=== PATIENT | female | born 1980 | race Caucasian/White ===

== ENCOUNTER 2016-12-23 16:38 | Emergency (ER) | payer MEDICAID ==
[~2016-12-23] VITALS: Ht 162.6 cm; Wt 83.9 kg
[~2016-12-23 16:38] MED LIST: IBUP-2213 PO
[2016-12-23 16:44] VITALS: BP 108/66
--- NOTE | 2016-12-23 16:47 | NUR ---
Patient ambulated to bed 04.
--- NOTE | 2016-12-23 16:52 | NUR ---
36F BIB SELF C/O SHORTNESS OF BREATH X 2 WEEKS; BL LUNG SOUNDS CLEAR, RR EVEN/UNLABORED, BL EQUAL RISE AND FALL OF CHEST AT THIS TIME; PT STATS HAS DRY COUGH AND IS "COUGHING UP BLOOD" X 2 WEEKS; PT C/O MID-"CHEST DISCOMFORT WITH BREATHING", RADIATES TO LEFT ARM, 6/10 AT THIS TIME; PT AA&OX4, PERRLA, SKIN IS WARM/DRY/INTACT AT THIS TIME; PT STATES NO N/V/D AT THIS TIME; PT PLACED ON MONITOR, RESTING IN BED WITH HOB ELEVATED AND IN LOWEST POSITION; POSITIONED FOR COMFORT; ER MD MADE AWARE OF STATUS. WILL CONTINUE TO MONITOR.
--- NOTE | 2016-12-23 16:55 | NUR ---
Dr. Singer evaluating patient at bedside.
--- NOTE | 2016-12-23 17:26 | NUR ---
XRAY at bedside.
[2016-12-23] MEDS ORDERED: KETOROLAC 60 MG/2 ML VIAL IM ONE (17:50)
[2016-12-23] MEDS ORDERED: methylPREDNISolone SS 125 MG in WATER STERILE 2 ML IM ONE (18:10)
[2016-12-23 18:42] VITALS: BP 103/69
--- NOTE | 2016-12-23 18:42 | NUR ---
Patient discharged with v/s stable. Written and verbal after care instructions given and explained. Patient alert, oriented and verbalized understanding of instructions. Ambulatory with steady gait. All questions addressed prior to discharge. ID band removed. Patient advised to follow up with PMD. Rx of NORCO 5MG-325MG TAB & PREDNISONE 50MG TAB given. Patient educated on indication of medication including possible reaction and side effects. Opportunity to ask questions provided and answered.
== END 2016-12-23 18:42 | disposition home or self-care (01) ==
LOC: MED 16:38
DX: J67.9 Hypersensitivity pneumonitis due to unspecified organic dust (principal); J61 Pneumoconiosis due to asbestos and other mineral fibers
CPT/HCPCS: 71010; 81002; 81025; 96372; 99284; J1885; J2930; Q0092

== ENCOUNTER 2017-02-18 11:06 | Emergency (ER) | payer MEDICAID ==
[~2017-02-18] VITALS: Ht 162.6 cm; Wt 86.2 kg
[2017-02-18 11:32] VITALS: BP 115/75
--- NOTE | 2017-02-18 11:39 | NUR ---
PATIENT TO BED 6 AT THIS TIME.
--- NOTE | 2017-02-18 11:47 | NUR ---
36 YO FEMALE C/O BLOOD IN SPUTUM X6 MONTHS, PAIN UPON BREATHING 01/29 X2WKS, PT WAS DIAGNOSED WITH PNEUMONITIS AND HAS AN APPOINTMENT WITH A TOOL CHECKER ON 02/27/17. A&OX4, VSS, GURNEY TO LOWEST LEVEL, BED RAILUP, RESTING ON GURNEY.
[2017-02-18] MEDS ORDERED: KETOROLAC 30 MG/ML VIAL IM ONE (11:55)
[2017-02-18 12:39] LABS: BASOPHILS # (AUTO) 0.3 K/uL (0.00-0.22); BASOPHILS % (AUTO) 4.3 % (0.0-2.0); EOSINOPHILS # (AUTO) 0.1 K/uL (0-0.4); EOSINOPHILS % (AUTO) 0.8 % (0.0-4.0); HEMATOCRIT 36.4 % (36-48); HEMOGLOBIN 11.7 g/dL (12.0-16.0); LYMPHOCYTES # (AUTO) 2.2 K/uL (2.5-16.5); LYMPHOCYTES % (AUTO) 30.2 % (20.5-51.1); MEAN CORPUSCULAR HEMOGLOBIN 28 pg (27-31); MEAN CORPUSCULAR HGB CONC 32 g/dL (33-37); MEAN CORPUSCULAR VOLUME 86 fL (80-94); MONOCYTES # (AUTO) 0.4 K/uL (0.8-1.0); MONOCYTES % (AUTO) 5.4 % (1.7-9.3); NEUTROPHILS # (AUTO) 4.4 K/uL (1.8-7.7); NEUTROPHILS % (AUTO) 59.3 % (42.2-75.2); PLATELET COUNT (AUTO) 350 K/uL (140-450); RED BLOOD CELL COUNT(AUTO) 4.22 MIL/uL (4.20-5.40); RED CELL DISTRIBUTION WIDTH 13.5 % (11.6-13.7); WHITE BLOOD COUNT (AUTO) 7.4 K/uL (4.8-10.8)
[2017-02-18 12:52] LABS: ANION GAP 12.9 (8-16); CREATININE 0.7 mg/dL (0.6-1.3); POTASSIUM 3.9 mmol/L (3.5-5.1)
[2017-02-18 13:26] VITALS: BP 98/63
--- NOTE | 2017-02-18 13:27 | NUR ---
Patient discharged with v/s stable. Written and verbal after care instructions given and explained. Patient alert, oriented and verbalized understanding of instructions. Ambulatory with steady gait. All questions addressed prior to discharge. ID band removed. Patient advised to follow up with PMD. Rx of NORCO, NAPROXEN given. Patient educated on indication of medication including possible reaction and side effects. Opportunity to ask questions provided and answered.
== END 2017-02-18 13:27 | disposition home or self-care (01) ==
LOC: MED 11:06
DX: R07.89 Other chest pain (principal); Z79.899 Other long term (current) drug therapy
CPT/HCPCS: 36415; 71020; 80048; 84484; 85025; 85379; 96372; 99285; J1885

== ENCOUNTER 2017-04-12 13:25 | Emergency (ER) | payer MEDICAID ==
[~2017-04-12] VITALS: Ht 157.5 cm; Wt 91.2 kg
[2017-04-12 13:31] VITALS: BP 101/71
--- NOTE | 2017-04-12 13:40 | NUR ---
PT AMBULATED TO BED 7.
--- NOTE | 2017-04-12 13:45 | NUR ---
36F BIB FAMILY C/O SHORTNESS OF BREATH WITH, DRY, HACKING COUGH AND HEMOPTYSIS X 1 YEAR; PT C/O ANTERIOR CHEST WALL PAIN, SHARP, RADIATES TO THE BACK, 8/10 WITH BREATHING AND COUGHING X 1 YEAR WELL; PT STATES BEING FOLLOWED BY DISASTER RECOVERY COORDINATOR AND THINKS SHE MAY HAVE LUPUS; BL LUNG SOUNDS CLEAR, RR EVEN/UNLABORED, BL EQUAL RISE/FALL OF CHEST NOTED AT THIS TIME; PT C/O NAUSEA X 2 DAYS, BUT STATES NO VOMITING OR DIARRHEA AT THIS TIME; PT AA&OX4, PERRLA, SKIN IS WARM/DRY/INTACT AT THIS TIME; STEADY GAIT; PT RESTING IN BED WITH HOB ELEVATED AND IN LOWEST POSITION; POSITIONED FOR COMFORT; ER MD MADE AWARE OF STATUS. WILL CONTINUE TO MONITOR.
--- NOTE | 2017-04-12 13:49 | NUR ---
ER MD DR. RODGERS EVALUATING PT AT BEDSIDE.
--- NOTE | 2017-04-12 13:54 | NUR ---
Note undone in EDM - 04/12/17 at 1405 by MEDSS 36F BIB FAMILY C/O SHORTNESS OF BREATH WITH, DRY, HACKING COUGH AND HEMOPTYSIS X 1 YEAR; PT C/O ANTERIOR CHEST WALL PAIN, SHARP, RADIATES TO THE BACK, 8/10 WITH BREATHING AND COUGHING X 1 YEAR WELL; PT STATES BEING FOLLOWED BY PARTS COORDINATOR AND THINKS SHE MAY HAVE LUPUS; BL LUNG SOUNDS CLEAR, RR EVEN/UNLABORED, BL EQUAL RISE/FALL OF CHEST NOTED AT THIS TIME; PT C/O NAUSEA X 2 DAYS, BUT STATES NO VOMITING OR DIARRHEA AT THIS TIME; PT AA&OX4, PERRLA, SKIN IS WARM/DRY/INTACT AT THIS TIME; STEADY GAIT; PT RESTING IN BED WITH HOB ELEVATED AND IN LOWEST POSITION; POSITIONED FOR COMFORT; ER MD MADE AWARE OF STATUS. WILL CONTINUE TO MONITOR.
[2017-04-12] MEDS ORDERED: oxyCODONE/APAP 5/325 MG 1 TAB TAB PO ONE (13:55)
--- NOTE | 2017-04-12 15:13 | NUR ---
PT RETURNED FROM XRAY VIA W/C ACCOMPANIED BY Stupeflix.
[2017-04-12 15:54] VITALS: BP 111/70
--- NOTE | 2017-04-12 15:54 | NUR ---
Patient discharged with v/s stable. Written and verbal after care instructions given and explained. Patient alert, oriented and verbalized understanding of instructions. Ambulatory with steady gait. All questions addressed prior to discharge. ID band removed. Patient advised to follow up with PMD. Rx of NORCO 5MG-325MG TAB given. Patient educated on indication of medication including possible reaction and side effects. Opportunity to ask questions provided and answered.
== END 2017-04-12 15:54 | disposition home or self-care (01) ==
LOC: MED 13:25
DX: R09.1 Pleurisy (principal); R04.2 Hemoptysis; Z79.899 Other long term (current) drug therapy
CPT/HCPCS: 71020; 81002; 81025; 99284

== ENCOUNTER 2017-06-19 13:36 | Emergency (ER) | payer MEDICAID ==
[~2017-06-19] VITALS: Ht 162.6 cm; Wt 92.1 kg
[2017-06-19 13:55] VITALS: BP 113/75
--- NOTE | 2017-06-19 14:10 | NUR ---
PT AA&OX4, STEADY GAIT AT THIS TIME; VSS; PT TO LOBBY AWAITING OPEN BED.
[2017-06-19 14:29] LABS: BASOPHILS # (AUTO) 0.1 K/uL (0.00-0.22); BASOPHILS % (AUTO) 1.5 % (0.0-2.0); EOSINOPHILS # (AUTO) 0.1 K/uL (0-0.4); HEMATOCRIT 37.5 % (36-48); HEMOGLOBIN 12.7 g/dL (12.0-16.0); LYMPHOCYTES # (AUTO) 2.2 K/uL (2.5-16.5); LYMPHOCYTES % (AUTO) 25.6 % (20.5-51.1); MEAN CORPUSCULAR HEMOGLOBIN 29 pg (27-31); MEAN CORPUSCULAR HGB CONC 34 g/dL (33-37); MEAN CORPUSCULAR VOLUME 85 fL (80-94); MONOCYTES # (AUTO) 0.4 K/uL (0.8-1.0); NEUTROPHILS % (AUTO) 67.9 % (42.2-75.2); PLATELET COUNT (AUTO) 351 K/uL (140-450); RED BLOOD CELL COUNT(AUTO) 4.42 MIL/uL (4.20-5.40); RED CELL DISTRIBUTION WIDTH 12.8 % (11.6-13.7); WHITE BLOOD COUNT (AUTO) 8.8 K/uL (4.8-10.8)
[2017-06-19 14:51] LABS: PROTHROMBIN TIME 9.9 secs (10.8-13.4)
[2017-06-19 14:55] LABS: ALBUMIN 3.6 g/dL (3.4-5.0); ANION GAP 10.1 (8-16); CARBON DIOXIDE 27.8 mmol/L (21-32); CREATININE 0.9 mg/dL (0.6-1.3); POTASSIUM 3.9 mmol/L (3.5-5.1); TOTAL BILIRUBIN 0.4 mg/dL (0.0-1.0)
--- NOTE | 2017-06-19 16:16 | NUR ---
PATIENT AMB. TO BRD#3
[2017-06-19] MEDS ORDERED: DEXAMETHASONE 10 MG/ML VIAL IM ONE (16:30)
[2017-06-19] MEDS ORDERED: KETOROLAC 60 MG/2 ML VIAL IM ONE (16:35)
--- NOTE | 2017-06-19 16:35 | NUR ---
PATIENT CAME IN WITH SOB, CHEST PAIN, AND NAUSEA X3 DAYS. PATIENT STATES COUGHING UP BLOOD THROUGHOUT THE DAY. C/O FEVERS AT NIGHT. DENIES CONTACT WITH ANYONE WITH TUBERCULOSIS. HX OF LUPUS. A&OX4. CONTINUE TO MONITOR.
[2017-06-19 17:11] VITALS: BP 121/71
--- NOTE | 2017-06-19 17:13 | NUR ---
Patient discharged with v/s stable. SHE STATES CHEST PAIN AND NAUSEA REIEVED. Written and verbal after care instructions given and explained. Patient alert, oriented and verbalized understanding of instructions. Ambulatory with steady gait. All questions addressed prior to discharge. ID band removed. Patient advised to follow up with PMD. Rx of MOTRIN given. Patient educated on indication of medication including possible reaction and side effects. Opportunity to ask questions provided and answered.
== END 2017-06-19 17:13 | disposition home or self-care (01) ==
LOC: MED 13:36
DX: R07.89 Other chest pain (principal); M32.9 Systemic lupus erythematosus, unspecified; Z86.73 Personal history of transient ischemic attack (TIA), and cerebral infarction without residual deficits; Z79.899 Other long term (current) drug therapy
CPT/HCPCS: 36415; 71010; 80053; 84484; 85025; 85610; 85730; 93005; 96372; 99285; J1100; J1885

== ENCOUNTER 2018-05-08 20:58 | Emergency (ER) | payer MEDICAID ==
[~2018-05-08] VITALS: Ht 162.6 cm; Wt 75.3 kg
[2018-05-08 21:01] VITALS: BP 122/68
[2018-05-08] MEDS ORDERED: NACL 0.9% 1,000 ML IV ONE (21:25)
[2018-05-08] MEDS ORDERED: KETOROLAC 30 MG/ML VIAL IVP ONE (21:25)
[2018-05-08 22:30] VITALS: BP 118/64
== END 2018-05-08 22:30 | disposition home or self-care (01) ==
LOC: MED 20:58
DX: J11.1 Influenza due to unidentified influenza virus with other respiratory manifestations (principal); Z79.1 Long term (current) use of non-steroidal anti-inflammatories (NSAID); Z86.73 Personal history of transient ischemic attack (TIA), and cerebral infarction without residual deficits
CPT/HCPCS: 96374; 99284; J1885; J7030

== ENCOUNTER 2018-12-14 09:29 | Emergency (ER) | payer MEDICAID ==
[~2018-12-14] VITALS: Ht 162.6 cm; Wt 77.1 kg
[2018-12-14 09:35] VITALS: BP 95/67
[2018-12-14] MEDS ORDERED: NACL 0.9% 1,000 ML IV ONE (09:55)
[2018-12-14] MEDS ORDERED: NACL 0.9% 1,000 ML IV SCH (09:55)
[2018-12-14] MEDS ORDERED: FAMOTIDINE 20 MG/2 ML VIAL IVP ONE (09:55)
[2018-12-14] MEDS ORDERED: KETOROLAC 30 MG/ML VIAL IVP ONE (09:55)
--- NOTE | 2018-12-14 09:56 | NUR ---
PATIENT PRESENTS TO ED WITH C/O DIFFICULTY BREATHING SINCE THIS MORNING. PT C/O SHARP EPIGASTRIC PAIN THAT GETS WORSE WHEN COUGHING-- RADIATING TO RT UPPER BACK. O2 SAT 100% ON RA. PATIENT STATES PAIN OF 8/10 AT THIS TIME; VSS; PATIENT POSITIONED FOR COMFORT; HOB ELEVATED; BEDRAILS UP X1; BED DOWN.
--- NOTE | 2018-12-14 10:09 | NUR ---
XRAY AT BEDSIDE, U/S AT BEDSIDE, IV 18GA LT A/C DONE. IVP MEDS GIVEN-NADR AT THIS TIME
[2018-12-14 10:42] LABS: BILIRUBIN,URINE 1+ (NEGATIVE); BLOOD, URINE NEGATIVE (NEGATIVE); COLOR,URINE YELLOW (YELLOW); LEUKOCYTE ESTERASE ,URINE NEGATIVE (NEGATIVE); NITRITE, URINE NEGATIVE (NEGATIVE); PH,URINE 5.5 (5.0-9.0); UGLUCOSE NEGATIVE (NEGATIVE)
[2018-12-14 10:44] LABS: BASOPHILS % (AUTO) 0.7 % (0.0-2.0); EOSINOPHILS % (AUTO) 0.7 % (0.0-4.0); HEMATOCRIT 35.2 % (36-48); HEMOGLOBIN 11.6 g/dL (12.0-16.0); LYMPHOCYTES # (AUTO) 1.7 K/uL (2.5-16.5); LYMPHOCYTES % (AUTO) 31.5 % (20.5-51.1); MEAN CORPUSCULAR HEMOGLOBIN 29 pg (27-31); MEAN CORPUSCULAR HGB CONC 33 g/dL (33-37); MONOCYTES # (AUTO) 0.4 K/uL (0.8-1.0); MONOCYTES % (AUTO) 7.3 % (1.7-9.3); NEUTROPHILS # (AUTO) 3.2 K/uL (1.8-7.7); NEUTROPHILS % (AUTO) 59.8 % (42.2-75.2); PLATELET COUNT (AUTO) 351 K/uL (140-450); RED CELL DISTRIBUTION WIDTH 13.5 % (11.6-13.7); WHITE BLOOD COUNT (AUTO) 5.3 K/uL (4.8-10.8)
[2018-12-14 10:47] LABS: BARBITURATE, URINE NEGATIVE ng/ml (NEG <=200); BENZODIAZEPINE, URINE NEGATIVE ng/mL (NEG <=200)
[2018-12-14 10:48] LABS: CANNABINOID, URINE NEGATIVE ng/mL (NEG <=50); COCAINE, URINE NEGATIVE ng/mL (NEG <=300); OPIATE, URINE NEGATIVE ng/mL (NEG <=2000); PHENCYCLIDINE SCREEN,URINE NEGATIVE ng/mL (NEG <=25)
[2018-12-14 10:55] LABS: ANION GAP 11.1 (8-16); CARBON DIOXIDE 25.7 mmol/L (21-32); CREATININE 0.8 mg/dL (0.6-1.3); POTASSIUM 3.8 mmol/L (3.5-5.1)
[2018-12-14 10:56] LABS: AMYLASE 43 U/L (25-115); LIPASE 103 U/L (73-393)
--- NOTE | 2018-12-14 11:06 | NUR ---
Patient appears to be resting comfortably in bed. Respirations even and unlabored. pt states pain is 7/10 after pain administration. Otherwise, vital signs within normal limits. at bedside. Addendum: 12/14/18 at 1108 by MEDLE Patient appears to be resting comfortably in bed. Respirations even and unlabored. pt states pain is 7/10 after pain medication administration. Otherwise, vital signs within normal limits. at bedside
[2018-12-14 11:10] LABS: ALBUMIN 3.4 g/dL (3.4-5.0); TOTAL BILIRUBIN 0.6 mg/dL (0.0-1.0)
[2018-12-14 11:12] LABS: APPEARANCE,URINE SLIGHTLY HAZY (CLEAR)
[2018-12-14 11:13] LABS: RBC,URINE 0-5 /HPF (0-5); WBC,URINE 0-5 /HPF (0-5)
[2018-12-14] MEDS ORDERED: LORazepam 2 MG/ML VIAL IM ONE (11:30)
[2018-12-14 13:36] VITALS: BP 112/65
--- NOTE | 2018-12-14 13:37 | NUR ---
Patient discharged with v/s stable. Written and verbal after care instructions given and explained. Patient alert, oriented and verbalized understanding of instructions. Ambulatory with steady gait. All questions addressed prior to discharge. ID band removed. Patient advised to follow up with PMD. Rx of VISTARIL given. Patient educated on indication of medication including possible reaction and side effects. Opportunity to ask questions provided and answered.
== END 2018-12-14 13:37 | disposition home or self-care (01) ==
LOC: MED 09:29
DX: F41.0 Panic disorder [episodic paroxysmal anxiety] (principal); R06.4 Hyperventilation; Z79.1 Long term (current) use of non-steroidal anti-inflammatories (NSAID)
CPT/HCPCS: 36415; 71045; 76705; 80053; 80305; 81001; 81025; 82150; 83690; 83880; 84484; 85025; 85379; 93005; 96372; 96374; 96375; 99284; J1885; J2060; J3490; J7030; Q0092

== ENCOUNTER 2019-01-31 09:28 | Emergency (ER) | payer MEDICAID ==
[~2019-01-31] VITALS: Ht 160 cm; Wt 81.6 kg
[2019-01-31 09:32] VITALS: BP 98/64
--- NOTE | 2019-01-31 09:37 | NUR ---
Patient ambulated to bed 8 with family. RN evaluating patient at bedside.
--- NOTE | 2019-01-31 09:38 | NUR ---
pt amb to restroom with steady gait
--- NOTE | 2019-01-31 09:45 | NUR ---
Dr. Cabrera evaluating patient at bedside.
--- NOTE | 2019-01-31 09:46 | NUR ---
38 Y FEMALE C/O GENERALIZED ABD PAIN AND SPITTING UP BLOOD X3 WEEKS. PT REPORTS DARK BROWN TO BRIGHT RED BLOOD. CONSTANT SHARP EPIGASTRIC PAIN THAT RADIATES TO LT SIDE OF BACK. +NAUSEA, DIARRHEA. DENIES BLOOD IN STOOL. BOWEL SOUNDS ACTIVE IN ALL 4 QUADRANTS. ABDOMEN SOFT AND ROUND, TENDER TO TOUCH. VSS. AA0X4. BED IS DOWN, LOCKED, BED RAIL X 1, ERMD TO SEE PT. MEDHX:DENIES RX:DENIES
[2019-01-31] MEDS ORDERED: ALUMINUM HYD/MAG/SIMETHICONE 30 ML UDC PO ONE (09:50)
[2019-01-31] MEDS ORDERED: PANTOPRAZOLE 40 MG INJ VIAL IVP ONE (09:50)
[2019-01-31] MEDS ORDERED: ONDANSETRON 4 MG/2 ML VIAL IVP ONE ×2 (09:50→10:35)
--- NOTE | 2019-01-31 09:50 | NUR ---
labs drawn and handed directly to engineer [facility]
--- NOTE | 2019-01-31 09:53 | NUR ---
US tech at bedside for exam.
[2019-01-31 10:11] LABS: BASOPHILS % (AUTO) 0.3 % (0.0-2.0); EOSINOPHILS % (AUTO) 0.6 % (0.0-4.0); HEMATOCRIT 35.2 % (36-48); HEMOGLOBIN 11.7 g/dL (12.0-16.0); LYMPHOCYTES # (AUTO) 1.7 K/uL (2.5-16.5); LYMPHOCYTES % (AUTO) 28.6 % (20.5-51.1); MEAN CORPUSCULAR HEMOGLOBIN 29 pg (27-31); MEAN CORPUSCULAR HGB CONC 33 g/dL (33-37); MEAN CORPUSCULAR VOLUME 87.9 fL (80-94); MONOCYTES # (AUTO) 0.4 K/uL (0.8-1.0); MONOCYTES % (AUTO) 5.9 % (1.7-9.3); NEUTROPHILS # (AUTO) 3.9 K/uL (1.8-7.7); NEUTROPHILS % (AUTO) 64.6 % (42.2-75.2); PLATELET COUNT (AUTO) 373 K/uL (140-450); RED CELL DISTRIBUTION WIDTH 14.1 % (11.6-13.7); WHITE BLOOD COUNT (AUTO) 6.1 K/uL (4.8-10.8)
[2019-01-31 10:12] LABS: APPEARANCE,URINE HAZY (CLEAR); BILIRUBIN,URINE NEGATIVE (NEGATIVE); BLOOD, URINE NEGATIVE (NEGATIVE); COLOR,URINE YELLOW (YELLOW); LEUKOCYTE ESTERASE ,URINE 1+ (NEGATIVE); NITRITE, URINE NEGATIVE (NEGATIVE); PH,URINE 5.5 (5.0-9.0); UGLUCOSE NEGATIVE (NEGATIVE)
[2019-01-31 10:22] LABS: ANION GAP 14.4 (8-16); CARBON DIOXIDE 25.3 mmol/L (21-32); CREATININE 0.7 mg/dL (0.6-1.3); POTASSIUM 3.7 mmol/L (3.5-5.1)
[2019-01-31 10:27] LABS: ALBUMIN 3.6 g/dL (3.4-5.0); TOTAL BILIRUBIN 0.3 mg/dL (0.0-1.0)
[2019-01-31 10:31] LABS: RBC,URINE 0-5 /HPF (0-5)
[2019-01-31] MEDS ORDERED: MORPHINE SULFATE 4 MG/ML SYR IVP ONE (10:35)
--- NOTE | 2019-01-31 10:48 | NUR ---
pt placed on monitor
--- NOTE | 2019-01-31 10:48 | NUR ---
pt c/o 01/29 pain, morhine ivp administered per dr rowell
--- NOTE | 2019-01-31 11:16 | NUR ---
Dr. Cabrera re-evaluating patient at bedside.
[2019-01-31 11:40] VITALS: BP 102/68
--- NOTE | 2019-01-31 11:40 | NUR ---
Patient discharged with v/s stable. Written and verbal after care instructions given and explained. Patient alert, oriented and verbalized understanding of instructions. Ambulatory with steady gait. All questions addressed prior to discharge. ID band removed. Patient advised to follow up with PMD. Rx of zofran, ultram, protonix given. Patient educated on indication of medication including possible reaction and side effects. Opportunity to ask questions provided and answered.
== END 2019-01-31 11:40 | disposition home or self-care (01) ==
LOC: MED 09:28
DX: R10.13 Epigastric pain (principal); K92.0 Hematemesis; Z79.899 Other long term (current) drug therapy
CPT/HCPCS: 36415; 76705; 80053; 81001; 81025; 83690; 84703; 85025; 86886; 86900; 86901; 87086; 96374; 96375; 96376; 99284; C9113; J2270; J2405; Q0092; 81002

== ENCOUNTER 2019-03-04 18:02 | Emergency (ER) | payer MEDICAID ==
[~2019-03-04] VITALS: Ht 160 cm; Wt 80.8 kg
[2019-03-04 18:07] VITALS: BP 112/68
[2019-03-04] MEDS ORDERED: ONDANSETRON 4 MG/2 ML VIAL IVP ONE (18:15)
[2019-03-04] MEDS ORDERED: NACL 0.9% 1,000 ML IV ONE (18:15)
[2019-03-04] MEDS ORDERED: PANTOPRAZOLE 40 MG INJ VIAL IVP ONE (18:15)
[2019-03-04 18:30] LABS: BASOPHILS % (AUTO) 0.6 % (0.0-2.0); EOSINOPHILS % (AUTO) 0.8 % (0.0-4.0); HEMATOCRIT 34.3 % (36-48); HEMOGLOBIN 11.4 g/dL (12.0-16.0); LYMPHOCYTES # (AUTO) 2.1 K/uL (2.5-16.5); LYMPHOCYTES % (AUTO) 37.4 % (20.5-51.1); MEAN CORPUSCULAR HEMOGLOBIN 29 pg (27-31); MEAN CORPUSCULAR HGB CONC 33 g/dL (33-37); MEAN CORPUSCULAR VOLUME 86.7 fL (80-94); MONOCYTES # (AUTO) 0.4 K/uL (0.8-1.0); MONOCYTES % (AUTO) 6.5 % (1.7-9.3); NEUTROPHILS # (AUTO) 3.1 K/uL (1.8-7.7); NEUTROPHILS % (AUTO) 54.7 % (42.2-75.2); PLATELET COUNT (AUTO) 400 K/uL (140-450); RED BLOOD CELL COUNT(AUTO) 3.96 MIL/uL (4.20-5.40); RED CELL DISTRIBUTION WIDTH 14.5 % (11.6-13.7); WHITE BLOOD COUNT (AUTO) 5.7 K/uL (4.8-10.8)
--- NOTE | 2019-03-04 18:32 | NUR ---
38F C/O SPITTING UP DARK BROWN BLOOD X1 DAY. PT REPORTS SPITTING UP SMALL AMOUNT OF BLOOD 2X TODAY AFTER EATING. PT IS SEEING GI SPECIALIST FOR EPIGASTRIC PAIN X5 MONTHS WHO REFERRED HER TO ER. SCHEDULED FOR ENDOSCOPY, BUT NOT SURE WHEN. DENIES N/V/D, FEVER. PAIN IS CONSANT, SHARP. EPIGASTRIUM TENDER TO DEEP PALPATION. MEDHX:DENIES RX:DENIES Addendum: 03/04/19 at 1834 by NISH STATES DECREASED APPETITE. HYPOACTIVE BS.
[2019-03-04 18:36] LABS: APPEARANCE,URINE CLEAR (CLEAR); BILIRUBIN,URINE NEGATIVE (NEGATIVE); BLOOD, URINE 2+ (NEGATIVE); COLOR,URINE YELLOW (YELLOW); LEUKOCYTE ESTERASE ,URINE NEGATIVE (NEGATIVE); NITRITE, URINE NEGATIVE (NEGATIVE); PH,URINE 6.5 (5.0-9.0); UGLUCOSE NEGATIVE (NEGATIVE)
[2019-03-04 18:40] LABS: CARBON DIOXIDE 27.3 mmol/L (21-32); CREATININE 0.8 mg/dL (0.6-1.3); POTASSIUM 3.3 mmol/L (3.5-5.1)
[2019-03-04 18:43] LABS: PROTHROMBIN TIME 9.4 secs (10.8-13.4)
[2019-03-04 18:46] LABS: ALBUMIN 3.7 g/dL (3.4-5.0); TOTAL BILIRUBIN 0.4 mg/dL (0.0-1.0)
--- NOTE | 2019-03-04 18:53 | NUR ---
PT STATES SHE IS STILL VERY UNCOMFORTABLE, NO DECREASED IN PAIN. NOTIFIED DR. VANCE.
[2019-03-04] MEDS ORDERED: MORPHINE SULFATE 2 MG/ML SYR IVP ONE (19:00)
--- NOTE | 2019-03-04 19:01 | NUR ---
DR. VANCE SPEAKING WITH PATIENT AT BEDSIDE.
[2019-03-04 19:07] LABS: WBC,URINE NONE SEEN /HPF (0-5)
--- NOTE | 2019-03-04 19:07 | NUR ---
Pt report given to ASHELY IBARRA. Transfer of care at this time.
--- NOTE | 2019-03-04 19:11 | NUR ---
RECEIVED REPORT FROM ASHELY ONEAL. ASSUMED CARE AT THIS TIME.
--- NOTE | 2019-03-04 19:21 | NUR ---
US TECH AT BEDSIDE.
--- NOTE | 2019-03-04 20:01 | NUR ---
PT STATES PAIN DECREASED TO 2/10 AT THIS TIME.
--- NOTE | 2019-03-04 21:20 | NUR ---
IV removed, catheter intact and site benign. Applied folded 4x4 gauze and tape to stop bleeding.
--- NOTE | 2019-03-04 21:30 | NUR ---
Patient discharged with v/s stable. Written and verbal after care instructions given and explained. Patient alert, oriented and verbalized understanding of instructions. Ambulatory with steady gait. All questions addressed prior to discharge. ID band removed. Patient advised to follow up with PMD. Rx of NORCO, PRILOSEC given. Patient educated on indication of medication including possible reaction and side effects. Opportunity to ask questions provided and answered.
[2019-03-04 21:39] VITALS: BP 104/63
== END 2019-03-04 21:30 | disposition home or self-care (01) ==
LOC: MED 18:02
DX: R10.13 Epigastric pain (principal); Z98.890 Other specified postprocedural states; Z79.1 Long term (current) use of non-steroidal anti-inflammatories (NSAID)
CPT/HCPCS: 36415; 76705; 80053; 81001; 83690; 85025; 85610; 85730; 96374; 96375; 99284; C9113; J2270; J2405; J7030; Q0092

== ENCOUNTER 2020-09-07 14:15 | Emergency (ER) | payer MEDICAID ==
[~2020-09-07] VITALS: Ht 162.6 cm; Wt 83.5 kg
[2020-09-07 14:31] VITALS: BP 128/89
--- NOTE | 2020-09-07 15:19 | NUR ---
PT AMBULATED TO BED 11.
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
--- NOTE | 2020-09-07 15:55 | NUR ---
ERMD AT BEDSIDE
[2020-09-07] MEDS ORDERED: HYDROcodone/APAP 5/325 MG 1 TAB TAB PO ONE (16:00)
[2020-09-07] MEDS ORDERED: ACET-8386 PO (16:40)
[2020-09-07 16:54] VITALS: BP 128/89
--- NOTE | 2020-09-07 16:55 | NUR ---
Note undone in EDM - 09/07/20 at 1655 by [facility] Patient discharged with v/s stable. Written and verbal after care instructions given and explained. Patient alert, oriented and verbalized understanding of instructions. Ambulatory with steady gait. All questions addressed prior to discharge. ID band removed. Patient advised to follow up with PMD. Rx of HYDROCODONE given. Patient educated on indication of medication including possible reaction and side effects. Opportunity to ask questions provided and answered.
--- NOTE | 2020-09-07 16:55 | NUR ---
Patient discharged with v/s stable. Written and verbal after care instructions ABOUT CONTUSION AND COSTOCHONDRITIS given and explained. Patient alert, oriented and verbalized understanding of instructions. Ambulatory with steady gait. All questions addressed prior to discharge. ID band removed. Patient advised to follow up with PMD. Rx of HYDROCODONE given. Patient educated on indication of medication including possible reaction and side effects. Opportunity to ask questions provided and answered.
== END 2020-09-07 16:54 | disposition home or self-care (01) ==
LOC: MED 14:15
DX: S20.219A Contusion of unspecified front wall of thorax, initial encounter (principal); X58.XXXA Exposure to other specified factors, initial encounter; Y93.9 Activity, unspecified; Y92.89 Other specified places as the place of occurrence of the external cause; Y99.8 Other external cause status
CPT/HCPCS: 71045; 81002; 81025; 99283

== ENCOUNTER 2021-02-27 12:53 | Emergency (ER) | payer MEDICAID ==
[~2021-02-27] VITALS: Ht 162.6 cm; Wt 81.6 kg
[~2021-02-27 12:53] MED LIST changes: +ACET-8386 PO
[2021-02-27 13:32] VITALS: BP 108/67
--- NOTE | 2021-02-27 13:35 | NUR ---
PT TO AWAIT IN LOBBY
--- NOTE | 2021-02-27 13:38 | NUR ---
DR MORRIS EXAMINING PT
[2021-02-27] MEDS ORDERED: NAPR-1704 PO (14:15)
== END 2021-02-27 15:00 | disposition home or self-care (01) ==
LOC: MED 12:53
DX: M25.522 Pain in left elbow (principal); X58.XXXA Exposure to other specified factors, initial encounter; Y93.89 Activity, other specified; Y92.89 Other specified places as the place of occurrence of the external cause; Y99.8 Other external cause status
CPT/HCPCS: 73080; 99283

== ENCOUNTER 2021-05-14 16:50 | Emergency (ER) | payer MEDICAID ==
[~2021-05-14] VITALS: Ht 162.6 cm; Wt 81.6 kg
[~2021-05-14 16:50] MED LIST changes: +NAPR-1704 PO
[2021-05-14 17:32] VITALS: BP 111/73
--- NOTE | 2021-05-14 17:34 | NUR ---
PT AMB TO BED 12
--- NOTE | 2021-05-14 17:40 | NUR ---
40 Y FEMALE FROM HOME DUE TO ABDOMINAL PAIN SINCE 0430 THIS AM. PT STATED THE PAIN IS SHARP AND CURRENTLY 8/10. PT +N/-D AT THIS TIME. PT STATED SHE HAS HAD CHILLS WELL. PT DENIES ANY CHEST PAIN, SOB, AND FEVER AT THIS TIME. UPON ASSESSMENT ADBOMEN IS SOFT AND TENDER TO TOUCH. BOWEL SOUNDS ACTIVE AT THIS TIME. LAST BM WAS 05/14/21 PMH: DENIES NKA
--- NOTE | 2021-05-14 18:00 | NUR ---
20 G IV ESTABLISHED IN L AC. BLOOD WORK COLLECTED FROM IV AND HANDED TO PATTERN DRUM MAKER
[2021-05-14 18:01] LABS: BASOPHILS # (AUTO) 0.1 K/uL (0.00-0.22); BASOPHILS % (AUTO) 0.6 % (0.0-2.0); EOSINOPHILS # (AUTO) 0.1 K/uL (0-0.4); EOSINOPHILS % (AUTO) 0.7 % (0.0-4.0); HEMATOCRIT 35.7 % (36-48); HEMOGLOBIN 11.9 g/dL (12.0-16.0); LYMPHOCYTES # (AUTO) 2.7 K/uL (2.5-16.5); MEAN CORPUSCULAR HEMOGLOBIN 29 pg (27-31); MEAN CORPUSCULAR HGB CONC 33 g/dL (33-37); MEAN CORPUSCULAR VOLUME 86.3 fL (80-94); MONOCYTES # (AUTO) 0.3 K/uL (0.8-1.0); MONOCYTES % (AUTO) 3.7 % (1.7-9.3); NEUTROPHILS # (AUTO) 5.3 K/uL (1.8-7.7); PLATELET COUNT (AUTO) 333 K/uL (140-450); RED BLOOD CELL COUNT(AUTO) 4.13 MIL/uL (4.20-5.40); RED CELL DISTRIBUTION WIDTH 15.1 % (11.6-13.7); WHITE BLOOD COUNT (AUTO) 8.4 K/uL (4.8-10.8)
[2021-05-14] MEDS ORDERED: MORPHINE SULFATE 4 MG/ML SYR IM ONE (18:15)
[2021-05-14] MEDS ORDERED: ONDANSETRON 4 MG/2 ML VIAL IM ONE (18:15)
[2021-05-14 18:17] LABS: ALBUMIN 3.8 g/dL (3.4-5.0); ANION GAP 16.4 (8-16); CARBON DIOXIDE 26.2 mmol/L (21-32); CREATININE 0.8 mg/dL (0.6-1.3); POTASSIUM 3.6 mmol/L (3.5-5.1); TOTAL BILIRUBIN 0.3 mg/dL (0.0-1.0)
[2021-05-14] MEDS ORDERED: MORPHINE SULFATE 4 MG/ML SYR IVP ONE (18:20)
[2021-05-14] MEDS ORDERED: ONDANSETRON 4 MG/2 ML VIAL IVP ONE (18:20)
--- NOTE | 2021-05-14 18:36 | NUR ---
PT PROVIDED WITH BLANKET AND CUP OF WATER BEDSIDE
--- NOTE | 2021-05-14 19:00 | NUR ---
US TECH BEDSIDE WITH PATIENT
--- NOTE | 2021-05-14 19:14 | NUR ---
Pt report given to ASHELY SANCHES. Transfer of care at this time.
--- NOTE | 2021-05-14 19:14 | NUR ---
PT REPORT RECEIVED FROM ASHELY YOUNG FOR CONTINUITY OF PT CARE AT THIS TIME.
[2021-05-14 19:18] LABS: BILIRUBIN,URINE NEGATIVE (NEGATIVE); BLOOD, URINE TRACE-I (NEGATIVE); COLOR,URINE YELLOW (YELLOW); LEUKOCYTE ESTERASE ,URINE NEGATIVE (NEGATIVE); NITRITE, URINE NEGATIVE (NEGATIVE); PH,URINE 5.5 (5.0-9.0); UGLUCOSE NEGATIVE (NEGATIVE)
--- NOTE | 2021-05-14 19:21 | NUR ---
PT LAYING IN R LATERAL POSITION IN BED W ULTRASOUND AT BEDSIDE. PT REPORTS PAIN HAS IMPROVED TO 4/10, FEELS OK AT THE MOMENT DENIES ANY CHEST PAIN, SOB OR NAUSEA. CONNECTED TO MONITOR W VSS. NAD NOTED, WILL CONTINUE TO MONITOR.
[2021-05-14 19:30] LABS: APPEARANCE,URINE HAZY (CLEAR)
[2021-05-14 19:31] LABS: RBC,URINE 0-5 /HPF (0-5); WBC,URINE 0-5 /HPF (0-5)
--- NOTE | 2021-05-14 21:02 | NUR ---
PT REPORTS ABDOMINAL PAIN 12/29, + NASUEA S/P AMBULATING TO BATHROOM. ERMD MADE AWARE.
[2021-05-14] MEDS ORDERED: KETOROLAC 15 MG/ML VIAL IVP ONE (21:05)
[2021-05-14] MEDS ORDERED: METOCLOPRAMIDE 10 MG/2 ML INJ VIAL IVP ONE (21:05)
[2021-05-14] MEDS ORDERED: KETOROLAC 30 MG/ML VIAL ONE (21:10)
[2021-05-14] MEDS ORDERED: CEPH-588 PO (21:39)
[2021-05-14] MEDS ORDERED: cephALEXin 500 MG CAP PO ONE (21:40)
[2021-05-14 22:04] VITALS: BP 122/70
== END 2021-05-14 22:04 | disposition home or self-care (01) ==
LOC: MED 16:50
DX: R10.31 Right lower quadrant pain (principal); R11.2 Nausea with vomiting, unspecified; Z79.899 Other long term (current) drug therapy
CPT/HCPCS: 36415; 74176; 76700; 80053; 81001; 81025; 82150; 83690; 85025; 87086; 96374; 96375; 99285; J1885; J2270; J2405; J2765; Q0092

== ENCOUNTER 2021-05-16 16:29 | Emergency (ER) | payer MEDICAID ==
[~2021-05-16] VITALS: Ht 162.6 cm; Wt 82.6 kg
[~2021-05-16 16:29] MED LIST changes: +CEPH-588 PO
[2021-05-16 16:31] VITALS: BP 125/80
--- NOTE | 2021-05-16 16:40 | NUR ---
Patient ambulated to bed 11 with steady/even gait.
--- NOTE | 2021-05-16 16:50 | NUR ---
40 y/o F BIB self from home c/o abdominal pain and nausea x Thursday, worsening since 0100 today. Patient A&Ox4, ambulatory, states seen here 05/14/21 and discharged with ABX. Pt has been compliant with Keflex and states symptoms worsening. States Tylenol 1000mg @ 0900 without relief. States nausea and chest pain 7/10 left sided stabbing/intermittent, worsening with deep breaths. Pt denies vomiting, diarrhea, constipation, fever, chills, dysuria, urinary symptoms. Epigastric region soft/round/tender to palpation. Bed locked in lowest position, side rails x 1. MEDHX: DENIES ALLERGIES: DENIES
--- NOTE | 2021-05-16 16:53 | NUR ---
Dr. Cabrera is evaluating patient at bedside
[2021-05-16] MEDS ORDERED: KETOROLAC 15 MG/ML VIAL IVP ONE (17:00)
[2021-05-16] MEDS ORDERED: ONDANSETRON 4 MG/2 ML VIAL IVP ONE (17:00)
[2021-05-16] MEDS ORDERED: NACL 0.9% 1,000 ML IV ONE (17:00)
--- NOTE | 2021-05-16 17:00 | NUR ---
CT consent form signed
--- NOTE | 2021-05-16 17:15 | NUR ---
UA and blood sample collected, handed to CPT Ghada at ER Bedside
--- NOTE | 2021-05-16 17:28 | NUR ---
Pt states + relief to pain; 5/10, denies nausea.
[2021-05-16 17:31] LABS: BASOPHILS % (AUTO) 0.4 % (0.0-2.0); EOSINOPHILS # (AUTO) 0.1 K/uL (0-0.4); EOSINOPHILS % (AUTO) 1.1 % (0.0-4.0); HEMATOCRIT 35.2 % (36-48); HEMOGLOBIN 11.9 g/dL (12.0-16.0); LYMPHOCYTES # (AUTO) 2.1 K/uL (2.5-16.5); LYMPHOCYTES % (AUTO) 35.6 % (20.5-51.1); MEAN CORPUSCULAR HEMOGLOBIN 29 pg (27-31); MEAN CORPUSCULAR HGB CONC 34 g/dL (33-37); MEAN CORPUSCULAR VOLUME 85.8 fL (80-94); MONOCYTES # (AUTO) 0.5 K/uL (0.8-1.0); NEUTROPHILS # (AUTO) 3.2 K/uL (1.8-7.7); NEUTROPHILS % (AUTO) 54.9 % (42.2-75.2); PLATELET COUNT (AUTO) 396 K/uL (140-450); RED CELL DISTRIBUTION WIDTH 14.8 % (11.6-13.7); WHITE BLOOD COUNT (AUTO) 5.8 K/uL (4.8-10.8)
--- NOTE | 2021-05-16 17:35 | NUR ---
Patient transported to CT by wheelchair
[2021-05-16 17:44] LABS: APPEARANCE,URINE CLEAR (CLEAR); BILIRUBIN,URINE NEGATIVE (NEGATIVE); BLOOD, URINE NEGATIVE (NEGATIVE); COLOR,URINE YELLOW (YELLOW); LEUKOCYTE ESTERASE ,URINE NEGATIVE (NEGATIVE); NITRITE, URINE NEGATIVE (NEGATIVE); PH,URINE 5.5 (5.0-9.0); UGLUCOSE NEGATIVE (NEGATIVE)
--- NOTE | 2021-05-16 17:46 | NUR ---
Patient returned from CT and IVF continued. Bed locked in lowest position, side rails x 1.
[2021-05-16 17:54] LABS: ALBUMIN 3.6 g/dL (3.4-5.0); ANION GAP 14.6 (8-16); CREATININE 0.8 mg/dL (0.6-1.3); POTASSIUM 3.6 mmol/L (3.5-5.1); TOTAL BILIRUBIN 0.3 mg/dL (0.0-1.0)
[2021-05-16] MEDS ORDERED: MIRABULK PO (18:19)
[2021-05-16] MEDS ORDERED: ACET-8386 PO (18:19)
[2021-05-16] MEDS ORDERED: ONDA-188 PO (18:19)
[2021-05-16 18:20] VITALS: BP 117/78
--- NOTE | 2021-05-16 18:21 | NUR ---
Dr. Cabrera is reevaluating patient at bedside
--- NOTE | 2021-05-16 18:27 | NUR ---
Patient discharged with v/s stable. Written and verbal after care instructions given and explained about Abdominal Pain. Patient alert, oriented and verbalized understanding of instructions. Ambulatory with steady gait. All questions addressed prior to discharge. ID band removed. Patient advised to follow up with PMD. Rx of Hydrocodone/Acetaminophen, Miralax, Zofran ODT given. Patient educated on indication of medication including possible reaction and side effects. Opportunity to ask questions provided and answered.
== END 2021-05-16 18:27 | disposition home or self-care (01) ==
LOC: MED 16:29
DX: R10.33 Periumbilical pain (principal); Z79.899 Other long term (current) drug therapy
CPT/HCPCS: 36415; 74177; 80053; 81003; 81025; 83690; 84703; 85025; 96361; 96374; 96375; 99285; J1885; J2405; J7030; Q9967

== ENCOUNTER 2021-06-18 17:05 | Emergency (ER) | payer MEDICAID ==
[~2021-06-18] VITALS: Ht 162.6 cm; Wt 85.7 kg
[~2021-06-18 17:05] MED LIST changes: +MIRABULK PO; +ONDA-188 PO
[2021-06-18 17:58] VITALS: BP 113/65
[2021-06-18] MEDS ORDERED: KETOROLAC 60 MG/2 ML VIAL IM ONE (18:30)
[2021-06-18] MEDS ORDERED: IBUP-2213 PO (18:55)
[2021-06-18] MEDS ORDERED: ONDA8TAB87 PO (18:55)
[2021-06-18] MEDS ORDERED: ACET-8386 PO (18:55)
[2021-06-18] MEDS ORDERED: ONDANSETRON 4 MG ODT PO ONE (19:00)
--- NOTE | 2021-06-18 19:00 | NUR ---
SEE COMPLETE ASSESSMENT FOR FURTHER INFORMATION.
--- NOTE | 2021-06-18 19:30 | NUR ---
Patient discharged with v/s stable. Written and verbal after care instructions given and explained. Patient alert, oriented and verbalized understanding of instructions. Ambulatory with steady gait. All questions addressed prior to discharge. ID band removed. Patient advised to follow up with PMD. Rx of NORCO AND MOTRIN given. Patient educated on indication of medication including possible reaction and side effects. Opportunity to ask questions provided and answered.
== END 2021-06-18 19:30 | disposition home or self-care (01) ==
LOC: MED 17:05
DX: R10.32 Left lower quadrant pain (principal); R11.0 Nausea; R68.83 Chills (without fever)
CPT/HCPCS: 81002; 81025; 96372; 99283; J1885; Q0162

== ENCOUNTER 2021-07-29 10:37 | Emergency (ER) | payer MEDICAID ==
[~2021-07-29] VITALS: Ht 165.1 cm; Wt 87.1 kg
[~2021-07-29 10:37] MED LIST changes: +ONDA8TAB87 PO
[2021-07-29 10:43] VITALS: BP 104/74
--- NOTE | 2021-07-29 10:46 | NUR ---
Pt ambulated to bed 12 with steady/even gait.
--- NOTE | 2021-07-29 11:01 | NUR ---
Dr. Cowart is evaluating patient at bedside
[2021-07-29] MEDS ORDERED: KETOROLAC 60 MG/2 ML VIAL IM ONE (11:05)
[2021-07-29] MEDS ORDERED: DICYCLOMINE HCL LIQUID 10 MG/5 ML UDC ONE (11:09)
[2021-07-29] MEDS ORDERED: ALUMINUM HYD/MAG/SIMETHICONE 30 ML UDC ONE (11:09)
[2021-07-29] MEDS ORDERED: DICYCLOMINE HCL LIQUID 20 MG, ALUMINUM HYD/MAG/SIMETHICONE 30 ML, LIDOCAINE VISCOUS 2% ... PO ONE ×3 (11:10)
--- NOTE | 2021-07-29 11:10 | NUR ---
40 Y/O F ABD PAIN SINCE LAST NIGHT. WITH NAUSEA. 9/10, SHARP/CONSTANT, EPIGASTRIC REGION PAIN RADIATING TO BACK. PT DENIES FEVER, CHILLS, N/V/D, DYSURIA, CHEST PAIN, URINRAY SYMPTOMS. REPORTS TYLENOL WITH NO RELIEF; STATES OTC ACID REFLUX MEDS WITH MINOR RELIEF. BED LOCKED IN LOWEST POSITION, SIDE RAILS X 1. MEDHX: FATTY LIVER, CYST, HERNIA NKA
[2021-07-29] MEDS ORDERED: ONDA8TAB87 PO (11:11)
[2021-07-29] MEDS ORDERED: OMEP40EC24 PO (11:11)
--- NOTE | 2021-07-29 11:35 | NUR ---
Patient discharged with v/s stable. Written and verbal after care instructions given and explained. Patient alert, oriented and verbalized understanding of instructions. Ambulatory with steady gait. All questions addressed prior to discharge. ID band removed. Patient advised to follow up with PMD. Rx of PRILOSEC, ZOFRAN given. Patient educated on indication of medication including possible reaction and side effects. Opportunity to ask questions provided and answered.
== END 2021-07-29 11:35 | disposition home or self-care (01) ==
LOC: MED 10:37
DX: R10.13 Epigastric pain (principal); R11.0 Nausea; Z79.899 Other long term (current) drug therapy; Z98.890 Other specified postprocedural states
CPT/HCPCS: 81002; 81025; 96372; 99283; J1885

== ENCOUNTER 2022-03-13 15:39 | Emergency (ER) | payer MEDICAID ==
[~2022-03-13] VITALS: Ht 162.6 cm; Wt 91.6 kg
[~2022-03-13 15:39] MED LIST changes: +OMEP40EC24 PO
[2022-03-13 15:51] VITALS: BP 119/68
--- NOTE | 2022-03-13 16:46 | NUR ---
pt walked to bed 7
[2022-03-13] MEDS ORDERED: ONDANSETRON 4 MG/2 ML VIAL IVP ONE (16:55)
[2022-03-13] MEDS ORDERED: MORPHINE SULFATE 4 MG/ML SYR IVP ONE (16:55)
[2022-03-13 17:14] LABS: BASOPHILS # (AUTO) 0.1 K/uL (0.00-0.22); BASOPHILS % (AUTO) 0.7 % (0.0-2.0); EOSINOPHILS # (AUTO) 0.1 K/uL (0-0.4); EOSINOPHILS % (AUTO) 1.3 % (0.0-4.0); HEMATOCRIT 34.2 % (36-48); HEMOGLOBIN 10.7 g/dL (12.0-16.0); LYMPHOCYTES # (AUTO) 2.7 K/uL (2.5-16.5); LYMPHOCYTES % (AUTO) 32.9 % (20.5-51.1); MEAN CORPUSCULAR HEMOGLOBIN 25 pg (27-31); MEAN CORPUSCULAR HGB CONC 31 g/dL (33-37); MEAN CORPUSCULAR VOLUME 78.2 fL (80-94); MONOCYTES # (AUTO) 0.6 K/uL (0.8-1.0); MONOCYTES % (AUTO) 7.2 % (1.7-9.3); NEUTROPHILS # (AUTO) 4.8 K/uL (1.8-7.7); NEUTROPHILS % (AUTO) 57.9 % (42.2-75.2); PLATELET COUNT (AUTO) 439 K/uL (140-450); RED BLOOD CELL COUNT(AUTO) 4.38 MIL/uL (4.20-5.40); RED CELL DISTRIBUTION WIDTH 20.4 % (11.6-13.7); WHITE BLOOD COUNT (AUTO) 8.3 K/uL (4.8-10.8)
[2022-03-13 17:33] LABS: ALBUMIN 3.6 g/dL (3.4-5.0); ANION GAP 14.2 (8-16); CARBON DIOXIDE 23.6 mmol/L (21-32); CREATININE 0.7 mg/dL (0.6-1.3); POTASSIUM 3.8 mmol/L (3.5-5.1); TOTAL BILIRUBIN 0.2 mg/dL (0.0-1.0)
--- NOTE | 2022-03-13 17:36 | NUR ---
Patient back from imaging.
--- NOTE | 2022-03-13 17:54 | NUR ---
Chaperoned EVAN Montaño during procedure.
--- NOTE | 2022-03-13 18:29 | NUR ---
Ultrasound at bedside.
--- NOTE | 2022-03-13 19:25 | NUR ---
Report given to BLAIRE Lombardo for transfer of care
[2022-03-13] MEDS ORDERED: METR-520 PO (19:54)
--- NOTE | 2022-03-13 20:15 | NUR ---
VERBAL ORDER FROM PA TO GIVE TYLENOL 1000MG PO FROM PELVIC PAIN. ORDERS CARRIED OUT
[2022-03-13] MEDS ORDERED: ACETAMINOPHEN EXTRA STRENGTH 500 MG TAB PO ONE (20:20)
--- NOTE | 2022-03-13 20:21 | NUR ---
PATIENT REFUSED TYLENOL MEDICATION AFTER HAVING IT IN MOUTH. STATED SHE WAS SCARED OF CHOKING. AWARE.
[2022-03-13] MEDS ORDERED: ACETAMINOPHEN EXTRA STRENGTH 500 MG TAB ONE (20:23)
--- NOTE | 2022-03-13 20:33 | NUR ---
Patient discharged with v/s stable. Written and verbal after care instructions given and explained. Patient alert, oriented and verbalized understanding of instructions. Ambulatory with steady gait. All questions addressed prior to discharge. ID band removed. Patient advised to follow up with PMD. Rx of FLAGYL given. Patient educated on indication of medication including possible reaction and side effects. Opportunity to ask questions provided and answered.
--- NOTE | 2022-03-13 20:35 | NUR ---
The patient's care was reviewed and supervised by Stefanie Truong RN.
== END 2022-03-13 20:33 | disposition home or self-care (01) ==
LOC: MED 15:39
DX: N76.0 Acute vaginitis (principal); B96.89 Other specified bacterial agents as the cause of diseases classified elsewhere; N83.202 Unspecified ovarian cyst, left side; D64.9 Anemia, unspecified; Z79.899 Other long term (current) drug therapy
CPT/HCPCS: 36415; 74176; 76856; 80053; 81002; 81025; 83690; 85025; 87070; 87210; 96374; 96375; 99285; J2270; J2405; Q0092

== ENCOUNTER 2022-10-21 14:44 | Emergency (ER) | payer MEDICAID, OTHER ==
[~2022-10-21] VITALS: Ht 162.6 cm; Wt 90.7 kg
[~2022-10-21 14:44] MED LIST changes: -ACET-8386 PO; +ACET-8905 PO; +METR-520 PO
[2022-10-21 14:48] VITALS: BP 140/52
--- NOTE | 2022-10-21 15:02 | NUR ---
URINE SENT TO LAB
[2022-10-21 15:30] LABS: APPEARANCE,URINE CLEAR (CLEAR); BILIRUBIN,URINE NEGATIVE (NEGATIVE); BLOOD, URINE NEGATIVE (NEGATIVE); COLOR,URINE YELLOW (YELLOW); LEUKOCYTE ESTERASE ,URINE NEGATIVE (NEGATIVE); NITRITE, URINE NEGATIVE (NEGATIVE); UGLUCOSE NEGATIVE (NEGATIVE)
[2022-10-21 15:38] LABS: BASOPHILS # (AUTO) 0.1 K/uL (0.00-0.22); EOSINOPHILS # (AUTO) 0.1 K/uL (0-0.4); HEMATOCRIT 36.5 % (36-48); LYMPHOCYTES # (AUTO) 2.8 K/uL (2.5-16.5); LYMPHOCYTES % (AUTO) 32.9 % (20.5-51.1); MEAN CORPUSCULAR HEMOGLOBIN 27 pg (27-31); MEAN CORPUSCULAR HGB CONC 33 g/dL (33-37); MEAN CORPUSCULAR VOLUME 82.7 fL (80-94); MONOCYTES # (AUTO) 0.5 K/uL (0.8-1.0); MONOCYTES % (AUTO) 5.5 % (1.7-9.3); NEUTROPHILS # (AUTO) 5.1 K/uL (1.8-7.7); NEUTROPHILS % (AUTO) 59.6 % (42.2-75.2); PLATELET COUNT (AUTO) 405 K/uL (140-450); RED BLOOD CELL COUNT(AUTO) 4.42 MIL/uL (4.20-5.40); RED CELL DISTRIBUTION WIDTH 16.8 % (11.6-13.7); WHITE BLOOD COUNT (AUTO) 8.5 K/uL (4.8-10.8)
[2022-10-21 15:54] LABS: ANION GAP 14.4 (8-16); CARBON DIOXIDE 23.8 mmol/L (21-32); CREATININE 0.7 mg/dL (0.6-1.3); POTASSIUM 4.2 mmol/L (3.5-5.1)
[2022-10-21 16:09] LABS: ALBUMIN 3.7 g/dL (3.4-5.0); TOTAL BILIRUBIN 0.3 mg/dL (0.0-1.0)
[2022-10-21] MEDS ORDERED: IBUP-2218 PO (16:57)
[2022-10-21] MEDS ORDERED: ACET-10509 PO (16:57)
[2022-10-21] MEDS ORDERED: KETOROLAC 30 MG/ML VIAL ONE (17:00)
[2022-10-21] MEDS ORDERED: KETOROLAC 30 MG/ML VIAL IM ONE (17:00)
[2022-10-21 17:27] VITALS: BP 125/78
--- NOTE | 2022-10-21 17:27 | NUR ---
Patient discharged with v/s stable. Written and verbal after care instructions FOR ABD PAIN given and explained. Patient alert, oriented and verbalized understanding of instructions. Ambulatory with steady gait. All questions addressed prior to discharge. ID band removed. Patient advised to follow up with PMD. Rx of TYLENOL XTRA STRENGTH AND IBUPROFEN given. Opportunity to ask questions provided and answered.
== END 2022-10-21 17:27 | disposition home or self-care (01) ==
LOC: MED 14:44
DX: R10.2 Pelvic and perineal pain (principal); Z79.899 Other long term (current) drug therapy; Z98.890 Other specified postprocedural states
CPT/HCPCS: 36415; 80053; 81003; 81025; 83690; 85025; 96372; 99283; J1885

== ENCOUNTER 2024-02-23 07:08 | Emergency (ER) | payer OTHER ==
[~2024-02-23] VITALS: Ht 162.6 cm; Wt 94.6 kg
[~2024-02-23 07:08] MED LIST changes: +ACET500T99 PO; +IBUP-2218 PO
[2024-02-23 07:13] VITALS: BP 107/53; PULSE 58; RESP 16; TEMP 98.1; O2SAT 96
[2024-02-23 07:52] VITALS: O2SAT 96
[2024-02-23] MEDS: KETOROLAC 30 MG/ML VIAL IM ONE (08:09)
[2024-02-23 08:17] LABS: BILIRUBIN,URINE NEGATIVE (NEGATIVE); BLOOD, URINE NEGATIVE (NEGATIVE); COLOR,URINE YELLOW (YELLOW); LEUKOCYTE ESTERASE ,URINE NEGATIVE (NEGATIVE); NITRITE, URINE NEGATIVE (NEGATIVE); PROTEIN,URINE NEGATIVE (NEGATIVE); UGLUCOSE NEGATIVE (NEGATIVE); UROBILINOGEN,URINE 0.2 EU/dL (0.2 - 1)
[2024-02-23 08:21] LABS: APPEARANCE,URINE SLIGHTLY HAZY (CLEAR); BACTERIA,URINE FEW /HPF (None Seen); RBC,URINE 0-5 /HPF (0-5); SQUAMOUS EPITHELIAL CELL,UR 4-10 (MOD) /LPF (0-3 (FEW)); WBC,URINE 0-5 /HPF (0-5)
[2024-02-23 08:23] LABS: BACTERIA,URINE FEW /HPF (None Seen); RBC,URINE 0-5 /HPF (0-5); SQUAMOUS EPITHELIAL CELL,UR 4-10 (MOD) /LPF (0-3 (FEW)); WBC,URINE 0-5 /HPF (0-5)
[2024-02-23] MEDS: HYDROcodone/APAP 5/325 MG 1 TAB TAB PO ONE (09:22)
== END 2024-02-23 11:59 | disposition home or self-care (01) ==
LOC: MED 07:08
DX: D25.9 Leiomyoma of uterus, unspecified (principal); Z79.899 Other long term (current) drug therapy
CPT/HCPCS: 72193; 76830; 81001; 81025; 93976; 96372; 99285; J1885; Q0092; Q9967